=== PATIENT | female | born 1960 | race Caucasian/White ===

== ENCOUNTER 2016-09-18 06:26 | Emergency (ER) | payer OTHER ==
[~2016-09-18] VITALS: Ht 160 cm; Wt 72.0 kg
[2016-09-18 06:30] VITALS: Ht 160 cm; Wt 72.0 kg
[2016-09-18] MEDS ORDERED: IBUPROFEN 600 MG TAB PO ONE (07:30)
[2016-09-18 07:37] LABS: URINE BLOOD (Dip) POC 1+ (NEGATIVE)
[2016-09-18] MEDS ORDERED: IBUP-1542 PO (08:44)
[2016-09-18] MEDS ORDERED: NITR-58 PO (08:44)
[2016-09-18 08:50] VITALS: TEMP 100.5
[2016-09-18] MEDS ORDERED: CEPH-443 PO (08:50)
--- NOTE | 2016-09-18 09:00 | ERD ---
ER Documentation Chief Complaint Date/Time DATE: 09/18/16 TIME: 08:55 Chief Complaint fever , generalizede body ache x 1 week HPI This is a 56-year-old female presents to the ED with generalized body ache for 1 week associated with subjective fever and dysuria for 2 days. Patient denies any recent history of cough, nausea, vomiting, diarrhea, headache or abdominal pain. Last bowel movement yesterday. Patient is taking Tylenol for symptom relief. Denies any sick contacts or recent travel. ROS All systems reviewed and are negative except as per history of present illness. Medications Home Meds Active Scripts Cephalexin* (Keflex*) 500 Mg Capsule, 500 MG PO QID for 10 Days, CAP Prov:ANA TSE 09/18/16 Ibuprofen* (Motrin*) 600 Mg Tab, 600 MG PO Q6H Y for PAIN AND OR ELEVATED TEMP, #30 TAB Prov:ANA TSE 09/18/16 Reported Medications [None] No Conflict Check 08/19/15 Discontinued Scripts Nitrofurantoin Monohyd Macrocr (Macrobid) 100 Mg Capsr, 100 MG PO BID for 7 Days , CAP Prov:ANA TSE 09/18/16 Allergies Allergies: Coded Allergies: No Known Allergies (Verified Allergy, Unknown, 01/26/15) PMhx/Soc History of Surgery: Yes (BREAST BX) Anesthesia Reaction: No Hx Neurological Disorder: No Hx Respiratory Disorders: No Hx Cardiac Disorders: No Hx Psychiatric Problems: No Hx Miscellaneous Medical Probl: No Hx Alcohol Use: No Hx Substance Use: No Hx Tobacco Use: No Physical Exam Vitals Vital Signs Date Time Temp Pulse Resp B/P Pulse Ox O2 Delivery O2 Flow Rate FiO2 09/18/16 08:50 100.5 09/18/16 06:30 101.2 126 18 137/84 98 Physical Exam Physical Exam CONST: Well-developed, well-nourished, in no acute distress. Nontoxic in appearance. HEENT: Atraumatic. Normal conjunctiva. EOM intact. TM intact. External ear is normal. Clear oropharnyx without erythema. No uvular deviation. Moist mucous membranes. Supple neck. No meningismus. No submandibular induration. RESP: Clear to auscultation bilaterally. No wheezing. CARDIO: Regular rate and rhythm, no murmurs. ABD: Soft, non tender, non distended. Normal bowel sounds. No McBurney's point tenderness. No guarding or rigidity. No peritoneal signs. SKIN: No petechiae or rashes. BACK: No midline or flank tenderness. EXT: No cyanosis or edema. Distal pulses equal and bilateral. NEURO: Awake and alert, appropriate for age. Results 24 hrs Laboratory Tests Test 09/18/16 07:37 Bedside Urine pH (LAB) 7.0 Bedside Urine Protein (LAB) 2+ Bedside Urine Glucose (UA) Negative Bedside Urine Ketones (LAB) Negative Bedside Urine Blood 1+ Bedside Urine Nitrite (LAB) Positive Bedside Urine Leukocyte Esterase (L 2+ Current Medications Medications (Trade) Dose Ordered Sig/Shayy Route PRN Reason Start Time Stop Time Status Last Admin Dose Admin Ibuprofen (Motrin) 600 mg ONCE ONCE PO 09/18/16 07:30 09/18/16 07:31 DC 09/18/16 07:30 Procedures/MDM EMERGENCY DEPARTMENT COURSE/MEDICAL DECISION MAKING This is a 56-year-old female who comes to the emergency room secondary to complaints of generalized body ache for 1 week associated with fever and dysuria for 2 days. The patient was given ibuprofen in the department for fever of 101.2. On re- evaluation, the patient's temperature improved to 100.5 Urinalysis was reviewed and showed protein +2, blood +1, nitrite plus and leukocyte +2. My primary diagnosis is UTI. Secondary diagnosis is dysuria Differential diagnoses considered but not limited to acute appendicitis, diverticulitis, pancreatitis, cholecystitis, gastritis, pyelonephritis, UTI, constipation, inflammatory bowel disease, ectopic , ovarian torsion. Pt is hemodynamically stable upon reassessment. The patient was discharged for outpatient management with a prescription for Keflex and ibuprofen. The patient was advised to followup with their PMD in 1-2 days and to return to the Emergency Department if there are any new or worsening symptoms. The patient understood and agreed with the diagnosis, treatment and plan. Patient is stable for discharge at this time. Departure Diagnosis: Primary Impression: UTI (urinary tract infection) Urinary tract infection type: site unspecified Hematuria presence: with hematuria Qualified Code: N39.0 - Urinary tract infection with hematuria, site unspecified Additional Impression: Dysuria Condition: Stable Patient Instructions: Understanding Urinary Tract Infections (UTIs) Referrals: [facility] YOU HAVE RECEIVED A MEDICAL SCREENING EXAM AND THE RESULTS INDICATE THAT YOU DO NOT HAVE A CONDITION THAT REQUIRES URGENT TREATMENT IN THE EMERGENCY DEPARTMENT. FURTHER EVALUATION AND TREATMENT OF YOUR CONDITION CAN WAIT UNTIL YOU ARE SEEN IN YOUR DOCTORS OFFICE WITHIN THE NEXT 1-2 DAYS. IT IS YOUR RESPONSIBILITY TO MAKE AN APPOINTMENT FOR FOLOW-UP CARE. IF YOU HAVE A PRIMARY DOCTOR --you should call your primary doctor and schedule an appointment IF YOU DO NOT HAVE A PRIMARY DOCTOR YOU CAN CALL OUR PHYSICIAN REFERRAL HOTLINE AT IF YOU CAN NOT AFFORD TO SEE A PHYSICIAN YOU CAN CHOSE FROM THE FOLLOWING [facility] [address] [facility] [address] [facility] [facility] [address] [facility] [address] [facility] [address] [facility]. [facility] [address] [facility] [facility] YOU HAVE RECEIVED A MEDICAL SCREENING EXAM AND THE RESULTS INDICATE THAT YOU DO NOT HAVE A CONDITION THAT REQUIRES URGENT TREATMENT IN THE EMERGENCY DEPARTMENT. FURTHER EVALUATION AND TREATMENT OF YOUR CONDITION CAN WAIT UNTIL YOU ARE SEEN IN YOUR DOCTORS OFFICE WITHIN THE NEXT 1-2 DAYS. IT IS YOUR RESPONSIBILITY TO MAKE AN APPOINTMENT FOR FOLOW-UP CARE. IF YOU HAVE A PRIMARY DOCTOR --you should call your primary doctor and schedule and appointment IF YOU DO NOT HAVE A PRIMARY DOCTOR YOU CAN CALL OUR PHYSICIAN REFERRAL HOTLINE AT . IF YOU CAN NOT AFFORD TO SEE A PHYSICIAN YOU CAN CHOSE FROM THE FOLLOWING [facility]: [facility] [address] [place] [address] [facility] [address] [place] [address] [facility] [address] [place] [address] Additional Instructions: Llame a french mdico de atencin primaria maana para hacer nicole stephany hanh los pr ximos guerin 1-2. Volver al Departamento de la emergencia inmediatamente si tiene cualquier s ntoma nuevo o que empeora. [place] todos los medicamentos nash lo indique. ANA TSE Sep 18, 2016 09:00
[2016-09-18 09:38] VITALS: PULSE 90
== END 2016-09-18 09:39 | disposition home or self-care (01) ==
LOC: FTE 06:26
DX: N39.0 Urinary tract infection, site not specified (principal); R30.0 Dysuria
CPT/HCPCS: 81003; Z7502; Z7610; 99283